=== PATIENT | male | born 1995 | race African-American/Black ===

== ENCOUNTER 2023-03-09 18:02 | Emergency (ER) | payer OTHER ==
[2023-03-09 18:11] VITALS: BP 135/89; PULSE 75; RESP 18; TEMP 98; BMI 27.6
[2023-03-09] MEDS ORDERED: ACETAMINOPHEN 1000 MG/100 ML BAG IVPB ONE (19:48)
[2023-03-09] MEDS ORDERED: ACETAMINOPHEN 500 MG TABLET (FP) PO ONE (19:53)
[2023-03-09] MEDS ORDERED: ACETAMINOPHEN 500 MG TABLET (FP) ONE (20:05)
[2023-03-09 20:17] LABS: BASO % 0.6 % (0-2.0); EOS % 0.6 % (0-4.5); HEMATOCRIT 46.6 % (35.4-49); HEMOGLOBIN 15.8 GM/dL (11.7-16.9); LYMPH % 25.2 % (8-40); MCH 31.3 pg (25.7-33.7); MEAN CELL VOLUME 92.1 fl (80-96); MEAN PLT VOLUME 7.1 fl (7.5-11.1); MONO % 6.1 % (3.8-10.2); NEUT % 67.5 % (42.8-82.8); PLATELET COUNT 270 10^3/uL (134-434); RBC 5.06 M/mm3 (4.00-5.60); RDW 13.8 % (11.9-15.9); WHITE BLOOD COUNT 6.9 K/mm3 (4.0-10.0)
[2023-03-09 20:24] LABS: INR 1.04 (0.83-1.09); PROTHROMBIN TIME (PATIENT) 12.1 SEC (9.7-13.0)
[2023-03-09 20:27] LABS: ACTIVATED PTT 30.8 SECONDS (25.2-36.5)
[2023-03-09 20:43] LABS: POTASSIUM 3.5 mmol/L (3.5-5.1)
[2023-03-09 20:46] LABS: BLOOD UREA NITROGEN 12.6 mg/dL (7-18)
[2023-03-09 20:49] LABS: CREATININE 1.3 mg/dL (0.55-1.3)
[2023-03-09 20:50] LABS: BILIRUBIN,TOTAL 0.4 mg/dL (0.2-1)
[2023-03-09 20:51] LABS: TOT PROT 7.8 g/dl (6.4-8.2)
== END 2023-03-09 23:30 | disposition home or self-care (01) ==
LOC: JER 18:02 → JERFT 18:02
DX: R07.89 Other chest pain (principal); R00.2 Palpitations; R06.00 Dyspnea, unspecified
CPT/HCPCS: 36415; 71046-TC-FY; 80053; 84484; 85025; 85379; 85610; 85730; 93005; 93010; 99285-25